=== PATIENT | male | born 1990 | race Caucasian/White ===

== ENCOUNTER 2019-10-25 14:10 | Emergency (ER) | payer MEDICAID ==
[~2019-10-25] VITALS: Ht 172.7 cm; Wt 72.6 kg
[2019-10-25] MEDS ORDERED: FLEXERIL (14:20)
[2019-10-25] MEDS ORDERED: HYDR-4354 PO (14:20)
[2019-10-25 14:28] LABS: BASOPHILS # (AUTO) 0.1 K/uL (0.0-8.0); BASOPHILS % (AUTO) 0.7 % (0.0-2.0); EOSINOPHILS % (AUTO) 0.5 % (0.0-7.0); HEMATOCRIT 42.3 % (36.7-47.1); LYMPHOCYTES # (AUTO) 1.8 K/uL (20.0-40.0); LYMPHOCYTES % (AUTO) 23.9 % (20.5-51.5); MEAN CORPUSCULAR HEMOGLOBIN 31.7 uug (23.8-33.4); MEAN CORPUSCULAR HGB CONC 36 g/dL (32.5-36.3); MEAN CORPUSCULAR VOLUME 89.3 fL (73.0-96.2); MONOCYTES # (AUTO) 0.8 K/uL (2.0-10.0); MONOCYTES % (AUTO) 10.9 % (0.0-11.0); NEUTROPHILS # (AUTO) 4.8 K/uL (1.8-8.9); PLATELET COUNT (AUTO) 308 K/uL (152-348); RED BLOOD CELL COUNT(AUTO) 4.74 MIL/uL (4.06-5.63); WHITE BLOOD COUNT (AUTO) 7.4 K/uL (3.6-10.2)
[2019-10-25 14:40] LABS: CREATININE 1.1 mg/dL (0.6-1.3); POTASSIUM 3.3 mmol/L (3.5-5.1)
[2019-10-25 14:42] LABS: ETHANOL 175 MG/DL (0-0)
[2019-10-25 14:46] LABS: BILIRUBIN,DIRECT 0.2 mg/dL (0.0-0.2); BILIRUBIN,TOTAL 0.5 mg/dL (0.2-1.0); TOTAL PROTEIN, SERUM 7.9 g/dL (6.4-8.2)
[2019-10-25 14:50] LABS: ACETAMINOPHEN < 2.0 ug/mL (10-30)
[2019-10-25] MEDS ORDERED: ONDANSETRON 4 MG/2 ML VIAL ONE (15:10)
[2019-10-25] MEDS ORDERED: ONDANSETRON 4 MG/2 ML VIAL IV ONE (15:15)
--- NOTE | 2019-10-25 15:15 | NUR ---
Pt DC [facility] #[id number], reports pt found down on street, bystander CPR in progress upon their arrival; they administered 0.4mg of Narcan and 4mg zofran IV (pt pulled out IV enroute). Upon arrival, pt was sitting up on cot, A&O. Pt thought he was getting cocaine, but is unsure of what he actually took. Pt deniess CP, SOB, dizziness and n/v, no other complaints, no distress noted, but pt appears anxious. Pt placed on monitor, started IV 20g, left AC and blood drawn & sent to lab.
[2019-10-25 17:59] LABS: *AMPHETAMINE, URINE NEGATIVE (NEGATIVE); *BARBITURATE, URINE NEGATIVE (NEGATIVE); *CANNABINOID, URINE NEGATIVE (NEGATIVE); *COCCAINE, URINE POSITIVE (NEGATIVE); *OPIATE, URINE NEGATIVE (NEGATIVE); *PHENCYCLIDINE SCREEN,URINE NEGATIVE (NEGATIVE)
[2019-10-25 18:27] VITALS: BP 150/70
== END 2019-10-25 18:29 | disposition home or self-care (01) ==
LOC: ER 14:14
DX: T65.91XA Toxic effect of unspecified substance, accidental (unintentional), initial encounter (principal); G92 Toxic encephalopathy; Y92.89 Other specified places as the place of occurrence of the external cause; F10.129 Alcohol abuse with intoxication, unspecified; Y90.6 Blood alcohol level of 120-199 mg/100 ml; R00.0 Tachycardia, unspecified; E87.6 Hypokalemia; R79.89 Other specified abnormal findings of blood chemistry; G89.29 Other chronic pain; M54.9 Dorsalgia, unspecified
CPT/HCPCS: 36415; 71045; 80048; 80076; 80307 ×2; 80329; 84484; 85025; 85730; 93005; 99285; G0480; J2405; 70030-TC; A4663

== ENCOUNTER 2019-11-19 17:08 | Emergency (ER) | payer MEDICAID ==
[~2019-11-19] VITALS: Ht 160 cm; Wt 59.0 kg
[~2019-11-19 17:08] MED LIST: FLEXERIL; HYDR-4354 PO
--- NOTE | 2019-11-19 17:11 | NUR ---
PATIENT IS IN ROOM 5. HE IS A/A/O X3 IN NO DISTRESS. IV PLACED. PATIENT IS ON A MONITOR.
[2019-11-19] MEDS ORDERED: CYCL10TA9 PO (17:20)
[2019-11-19] MEDS ORDERED: HYDR-3203 PO (17:20)
[2019-11-19] MEDS ORDERED: SWABABLE VALVE TRANSFER SET EA MC ONE (17:45)
[2019-11-19] MEDS ORDERED: ACETAMINOPHEN 325 MG TABLET PO ONE (17:45)
[2019-11-19] MEDS ORDERED: KETOROLAC TROMETHAMINE 15 MG INJ IVP ONE (17:45)
[2019-11-19] MEDS ORDERED: IOHEXOL 300MG/ML 100 ML INFUS..BTL ONE (17:45)
[2019-11-19] MEDS ORDERED: IV NORMAL SALINE 250 ML IV ONE (17:45)
[2019-11-19] MEDS ORDERED: IV NORMAL SALINE 1000 ML BAG IV ONE (17:45)
[2019-11-19] MEDS ORDERED: ACETAMINOPHEN 325 MG TABLET ONE (17:53)
[2019-11-19] MEDS ORDERED: KETOROLAC TROMETHAMINE 15 MG INJ ONE (17:53)
[2019-11-19 18:03] LABS: BASOPHILS % (AUTO) 0.5 % (0.0-2.0); HEMATOCRIT 43.3 % (36.7-47.1); HEMOGLOBIN 15.2 g/dL (12.5-16.3); LYMPHOCYTES # (AUTO) 1.9 K/uL (20.0-40.0); LYMPHOCYTES % (AUTO) 21.6 % (20.5-51.5); MEAN CORPUSCULAR HEMOGLOBIN 31.3 uug (23.8-33.4); MEAN CORPUSCULAR HGB CONC 35 g/dL (32.5-36.3); MEAN CORPUSCULAR VOLUME 89.4 fL (73.0-96.2); MONOCYTES % (AUTO) 10.6 % (0.0-11.0); NEUTROPHILS % (AUTO) 67.3 % (38.5-71.5); PLATELET COUNT (AUTO) 357 K/uL (152-348); RED BLOOD CELL COUNT(AUTO) 4.84 MIL/uL (4.06-5.63)
[2019-11-19 18:15] LABS: CREATININE 0.9 mg/dL (0.6-1.3); POTASSIUM 3.8 mmol/L (3.5-5.1)
[2019-11-19 18:20] LABS: BILIRUBIN,DIRECT 0.2 mg/dL (0.0-0.2); BILIRUBIN,TOTAL 0.5 mg/dL (0.2-1.0); TOTAL PROTEIN, SERUM 7.9 g/dL (6.4-8.2)
--- NOTE | 2019-11-19 19:07 | NUR ---
HAND OFF REPORT GIVEN TO ROCIO FUENTES
--- NOTE | 2019-11-19 19:07 | NUR ---
PATIENT STATES PAIN HAS DIMINISHED SOME
--- NOTE | 2019-11-19 20:13 | NUR ---
IV removed. Catheter intact and site benign. Pressure and 4x4 gauze applied to site. No bleeding noted.
[2019-11-19 20:16] VITALS: BP 140/90
== END 2019-11-19 20:17 | disposition home or self-care (01) ==
LOC: ER 17:09
DX: R07.89 Other chest pain (principal); S30.1XXA Contusion of abdominal wall, initial encounter; Y35.0 Legal intervention involving firearm discharge; Y93.89 Activity, other specified; Y92.89 Other specified places as the place of occurrence of the external cause; Y99.8 Other external cause status; I45.6 Pre-excitation syndrome; J43.9 Emphysema, unspecified; R91.1 Solitary pulmonary nodule; K76.0 Fatty (change of) liver, not elsewhere classified; G89.29 Other chronic pain; M54.9 Dorsalgia, unspecified; Z79.899 Other long term (current) drug therapy
CPT/HCPCS: 36415; 71045; 71260; 74177; 80048; 80076; 84484; 85025; 85730; 93005; 96361; 96374; 99285; J1885; Q9967; 70030-TC; A4663; J7030; J7050